=== PATIENT | female | born 1930 | race Caucasian/White ===

== ENCOUNTER → 2017-10-02 | Outpatient (REF) | payer MEDICARE | LOC: M LAB REF 17:42 | PROVIDERS: ATTEND Internal Medicine Pulmonary Disease | DX: J96.11 Chronic respiratory failure with hypoxia (principal) ==

== ENCOUNTER → 2018-09-18 | Outpatient (REF) ==
[2018-09-18 12:12] LABS: HEMOGLOBIN 9.2 g/dl (12.0-15.5); MEAN CORPUSCULAR HEMOGLOBIN 29.8 pg (27.0-33.0); MEAN CORPUSCULAR HGB CONC 31.7 g/dl (32.0-36.5); MEAN CORPUSCULAR VOLUME 93.9 fl (80.0-96.0); PLATELET COUNT, AUTOMATED 236 10^3/uL (150-450); RED BLOOD COUNT 3.09 10^6/uL (4.00-5.40); RED CELL DISTRIBUTION WIDTH 17.3 % (11.5-14.5); WHITE BLOOD COUNT 15.5 10^3/uL (4.0-10.0)
[2018-09-18 12:34] LABS: ANION GAP 9 MEQ/L (8-16); BLOOD UREA NITROGEN 28 MG/DL (7-18); CALCIUM LEVEL 8.8 MG/DL (8.8-10.2); CARBON DIOXIDE LEVEL 25 MEQ/L (21-32); CHLORIDE LEVEL 104 MEQ/L (98-107); CREATININE FOR GFR 1.46 MG/DL (0.55-1.30); GLOMERULAR FILTRATION RATE 36.1 (>32); GLUCOSE, FASTING 126 MG/DL (70-100); IRON (FE) 14 UG/DL (50-170); PERCENT SATURATION 6.3 % (13.2-45.0); SODIUM LEVEL 138 MEQ/L (136-145); TOTAL IRON BINDING CAPACITY 224 UG/DL (250-450)
[2018-09-19 08:15] LABS: TRANSFERRIN 177 mg/dL (200-370)
== END ==
DX: I63.9 Cerebral infarction, unspecified (principal)

== ENCOUNTER → 2018-09-19 | Outpatient (REF) ==
[2018-09-19 08:08] LABS: HEMATOCRIT 27.9 % (36.0-47.0); HEMOGLOBIN 8.7 g/dl (12.0-15.5); MEAN CORPUSCULAR HEMOGLOBIN 29.5 pg (27.0-33.0); MEAN CORPUSCULAR HGB CONC 31.2 g/dl (32.0-36.5); MEAN CORPUSCULAR VOLUME 94.6 fl (80.0-96.0); PLATELET COUNT, AUTOMATED 205 10^3/uL (150-450); RED BLOOD COUNT 2.95 10^6/uL (4.00-5.40); WHITE BLOOD COUNT 12.8 10^3/uL (4.0-10.0)
== END ==
DX: D72.829 Elevated white blood cell count, unspecified (principal)

== ENCOUNTER → 2018-09-25 | Outpatient (REF) ==
[2018-09-25 10:47] LABS: HEMATOCRIT 27.8 % (36.0-47.0); HEMOGLOBIN 8.9 g/dl (12.0-15.5); MEAN CORPUSCULAR VOLUME 90.6 fl (80.0-96.0); PLATELET COUNT, AUTOMATED 384 10^3/uL (150-450); RED BLOOD COUNT 3.07 10^6/uL (4.00-5.40); RED CELL DISTRIBUTION WIDTH 16.7 % (11.5-14.5); WHITE BLOOD COUNT 13.9 10^3/uL (4.0-10.0)
[2018-09-25 11:05] LABS: ANION GAP 9 MEQ/L (8-16); BLOOD UREA NITROGEN 24 MG/DL (7-18); CALCIUM LEVEL 8.7 MG/DL (8.8-10.2); CARBON DIOXIDE LEVEL 26 MEQ/L (21-32); CHLORIDE LEVEL 103 MEQ/L (98-107); CREATININE FOR GFR 1.32 MG/DL (0.55-1.30); GLOMERULAR FILTRATION RATE 40.5 (>32); GLUCOSE, FASTING 114 MG/DL (70-100); POTASSIUM SERUM 4.8 MEQ/L (3.5-5.1); SODIUM LEVEL 138 MEQ/L (136-145)
== END ==
DX: I63.9 Cerebral infarction, unspecified (principal)